=== PATIENT | male | born 1985 | race Caucasian/White ===

== ENCOUNTER 2017-06-15 03:24 | Emergency (ER) | payer SELFPAY ==
[2017-06-15 03:33] VITALS: TEMP 97.8
--- NOTE | 2017-06-15 03:59 | ED PDOC ---
HPI: Chest Pain History Per: Patient History/Exam Limitations: no limitations Onset/Duration Of Symptoms: Hrs Current Symptoms Are (Timing): Gone Now Severity: Moderate Pain Scale Rating Of: 6 Quality: Squeezing Modifying Factors: None Exacerbating Factors: None Alleviating Factors: None Additional History Per: Patient <CarmenMelia - Last Filed: 06/15/17 06:38> <Jordan Baumann - Last Filed: 06/15/17 06:55> Time Seen by Provider: 06/15/17 03:27 Chief Complaint (Nursing): Chest Pain Additional Complaint(s): 32 YO Male with PMH of anxiety, presents to [facility] ED for chest pain x 11 hrs. Pt states that he was sitting on his computer when his pain started, he describes it as a squeezing pain that radiation to his L scapula. No radiation to his L shoulder/arm or jaw. Pain not worse with ambulation, movement. Pain resolved approximately 30mins before presentation to ED. Denies dyspnea, cough, fever, palpations, n/v/d/c. Of note, pt states that he heard bad news (about his investments) right before his chest pain started. PMH: anxiety SurgH: denies SH: smokes hookah (1-2x a week), no illicit drug use and social alcohol (3-4x month) FH: denies hx of CAD, [place], Stroke, DM, HTN in family Meds: denies Allergies: NKDA (Melia Moarles) Supervising Attending Note - Attestation: I have personally seen and examined this patient.: Yes I have fully participated in the care of the patient.: Yes I have reviewed all pertinent clinical information: Yes <Jordan Baumann - Last Filed: 06/15/17 06:55> Past Medical History - Medical History PMH: No Chronic Diseases - Surgical History Surgical History: No Surg Hx - Family History Family History: States: No Known Family Hx - Living Arrangements Living Arrangements: Alone - Social History Current smoker - smoking cessation education provided: Yes (hookah 1-2x a week ) Alcohol: Social Drugs: Denies <Melia Morales - Last Filed: 06/15/17 06:38> <Jordan Baumann - Last Filed: 06/15/17 06:55> Vital Signs: Last Vital Signs Temp 97.8 F 06/15/17 03:32 Pulse 80 06/15/17 05:27 Resp 14 06/15/17 05:27 BP 129/65 06/15/17 05:27 Pulse Ox 100 06/15/17 06:39 - Allergies Allergies/Adverse Reactions: Allergies Allergy/AdvReac Type Severity Reaction Status Date / Time No Known Allergies Allergy Verified 06/15/17 03:32 Review of Systems Constitutional: Negative for: Fever, Chills Cardiovascular: Positive for: Chest Pain. Negative for: Palpitations, Light Headedness Respiratory: Negative for: Cough, Shortness of Breath, SOB with Exertion Gastrointestinal: Negative for: Nausea, Vomiting, Abdominal Pain Neurological: Negative for: Weakness, Confusion Psych: Positive for: Anxiety <Melia Morales - Last Filed: 06/15/17 06:38> Physical Exam - Physical Exam Appears: Positive for: Well, Non-toxic, No Acute Distress Head Exam: Positive for: ATRAUMATIC, NORMOCEPHALIC Skin: Positive for: Normal Color Eye Exam: Positive for: Normal appearance, EOMI Neck: Positive for: Painless ROM Cardiovascular/Chest: Positive for: Regular Rate, Rhythm, Other (Mild T2-T4 L parasternal tenderness to palpation ) Respiratory: Positive for: Normal Breath Sounds. Negative for: Crackles, Wheezing, Respiratory Distress Gastrointestinal/Abdominal: Positive for: Normal Exam, Bowel Sounds, Soft. Negative for: Tenderness Back: Positive for: Normal Inspection Extremity: Positive for: Normal ROM Neurologic/Psych: Positive for: Alert, Oriented <Melia Morales - Last Filed: 06/15/17 06:38> - Laboratory Results Result Diagrams: 06/15/17 04:10 06/15/17 04:10 - ECG ECG: Positive for: Interpreted By Ma ECG Rhythm: Positive for: Sinus Rhythm O2 Sat by Pulse Oximetry: 100 <Melia Morales - Last Filed: 06/15/17 06:38> - Laboratory Results Result Diagrams: 06/15/17 04:10 06/15/17 04:10 <Jordan Baumann - Last Filed: 06/15/17 06:55> - ECG Interpretation Of ECG: Normal sinus rhythm with rate of 76. No acute ST changes. (Melia Morales) - Progress ED Course And Treament: 32 YO male is seen in ED for chest pain, likely 2/2 to anxiety. EKG with normal sinus, no acute ST changes, with rate of 76 --CBC --CMP --Trops Blood work seen and reviewed with pt. CBC wnl, CMP wnl. Trops neg <0.012. Pt feeling better, no longer has any chest pain. Will d/c home with follow up in [facility]. (Melia Morales) Disposition - Disposition Disposition Time: 05:30 <Melia Morales - Last Filed: 06/15/17 06:38> <Jordan Baumann - Last Filed: 06/15/17 06:55> - Clinical Impression Clinical Impression: Non-cardiac chest pain - Disposition Referrals: [facility] [Outside] Condition: STABLE Instructions: Chest Pain That Is Not Caused by the Heart (DC) Forms: [employer] (Armenian)
[2017-06-15 04:19] LABS: BASO # 0.1 K/uL (0.0-0.2); BASO % 1.4 % (0.0-2.0); EOS # 0.4 K/uL (0.0-0.7); EOS % 4.5 % (0.0-4.0); HEMOGLOBIN 15.1 g/dL (12.0-18.0); LYMPH # 3.1 K/uL (1.0-4.3); LYMPH % 38.7 % (20.0-40.0); MEAN CELL VOLUME 88.9 fl (80.0-94.0); MEAN CORPUSCULAR HEMOGLOBIN 30.5 pg (27.0-31.0); MEAN CORPUSCULAR HGB CONC 34.3 g/dL (33.0-37.0); MEAN PLATELET VOLUME 8.5 fl (7.2-11.7); MONO # 0.6 K/uL (0.0-0.8); MONO % 7.1 % (0.0-10.0); NEUT # 3.8 K/uL (1.8-7.0); NEUT % 48.3 % (50.0-75.0); NRBC % 0.1 % (0.0-0.0); RBC 4.96 Mil/uL (4.40-5.90)
[2017-06-15 04:29] LABS: ALB/GLOB RATIO 1.4 (1.0-2.1); ALBUMIN 4.3 g/dL (3.5-5.0); ALT/SGPT 35 U/L (21-72); AST/SGOT 37 U/L (17-59); BLOOD UREA NITROGEN 15 mg/dl (9-20); CALCIUM 9.9 mg/dL (8.4-10.2); GFR AFRICAN-AMERICAN > 60; GFR NON-AFRICAN AMERICAN > 60
[2017-06-15 05:27] VITALS: BP 129/65; PULSE 80; RESP 14
[2017-06-15 06:39] VITALS: O2SAT 100
== END 2017-06-15 05:28 | disposition home or self-care (01) ==
LOC: H.ER 03:24
DX: R07.89 Other chest pain (principal); F41.9 Anxiety disorder, unspecified; F17.200 Nicotine dependence, unspecified, uncomplicated

== ENCOUNTER 2017-07-29 20:40 | Emergency (ER) | payer SELFPAY ==
[2017-07-29 20:52] VITALS: BP 134/80; PULSE 68; RESP 18; TEMP 98.1; O2SAT 99
[2017-07-29 21:29] LABS: URINE BILIRUBIN NEGATIVE (NEGATIVE); URINE BLOOD SMALL (NEGATIVE); URINE CLARITY CLEAR (Clear); URINE COLOR YELLOW (YELLOW); URINE GLUCOSE (UA) NEG (Normal); URINE LEUKOCYTE ESTERASE NEG Leu/uL (Negative); URINE PROTEIN NEGATIVE (NEGATIVE); URINE UROBILINOGEN 0.2-1.0 mg/dL (0.2-1.0)
--- NOTE | 2017-07-29 22:10 | ED PDOC ---
HPI: Male Pain Time Seen by Provider: 07/29/17 20:57 Chief Complaint (Nursing): Male Genitourinary Chief Complaint (Provider): testicular pain History Per: Patient History/Exam Limitations: no limitations Onset/Duration Of Symptoms: Hrs, Sudden Onset Current Symptoms Are (Timing): Still Present Quality Of Discomfort: Dull, "Pain" Additional Complaint(s): 32yo male, presents to ED for evaluation of sudden onset testicular pain, right > left which occurred 2 hours ago. Patient states the pain initially was sharp but now has decreased to a dull ache and is tolerable. Patient states he initially went to [facility] for evaluation and had a UA done which was negative; patient was referred to the ED for further evaluation. Patient reports for the past 3 weeks, he has had intermittent burning with urination but denies any penile discharge, lesions, fever, chills, nausea, vomiting, abdominal pain, diarrhea or constipation. Patient denies any new sexual partners as well. he offers no other medical complaints. PMD: None Past Medical History Reviewed: Historical Data, Nursing Documentation, Vital Signs Vital Signs: Last Vital Signs Temp 98.1 F 07/29/17 20:49 Pulse 68 07/29/17 20:49 Resp 18 07/29/17 20:49 BP 134/80 07/29/17 20:49 Pulse Ox 99 07/29/17 20:49 - Medical History PMH: No Chronic Diseases - Surgical History Surgical History: No Surg Hx - Family History Family History: States: No Known Family Hx - Social History Current smoker - smoking cessation education provided: Yes Alcohol: Occasional Drugs: Denies - Allergies Allergies/Adverse Reactions: Allergies Allergy/AdvReac Type Severity Reaction Status Date / Time No Known Allergies Allergy Verified 06/15/17 03:32 Review of Systems ROS Statement: Except As Marked, All Systems Reviewed And Found Negative Constitutional: Negative for: Fever, Chills Gastrointestinal: Negative for: Nausea, Vomiting, Abdominal Pain Genitourinary Male: Positive for: Other (testicular pain right > left ). Negative for: Penile Discharge Physical Exam - Reviewed Nursing Documentation Reviewed: Yes Vital Signs Reviewed: Yes - Physical Exam Appears: Positive for: Non-toxic, No Acute Distress Male Genital Exam: Positive for: normal genitalia, testicular tenderness (R) ( mild), testicular tenderness (L) (mild), other (normal cremasteric reflex; normal lie). Negative for: lesions, urethral discharge Lymphatic: Negative for: Adenopathy (inguinal) - ECG O2 Sat by Pulse Oximetry: 99 (RA) Pulse Ox Interpretation: Normal Medical Decision Making Medical Decision Making: Impression: Testicular pain Differential diagnosis (including but not limited to): Torsion, epididymitis, hydrocele, varicocele Plan: -- Male genital exam done w/ mail teller Yeny as flying ii instructor -- Labs -- Urine culture -- US Duplex Testes Time: 2222 US Testicles FINDINGS: Right testicle: Unremarkable. No mass. No torsion. Left testicle: Unremarkable. No mass. No torsion. Epididymides: Unremarkable. Scrotum: A small left varicocele is noted. There is a small left hydrocele. IMPRESSION: 1. A small left varicocele is noted. 2. There is a small left hydrocele. RBC 4 in UA No clinically significant findings DW pt findings and plan of care. f/u urology. stable for dc. Concerns/questions addressed/answered. Scribe Attestation: Documented by Emilia Mcdaniels acting as a scribe for Yolanda Serra MD. Provider Attestation: All medical record entries made by the Scribe were at my direction and personally dictated by me. I have reviewed the chart and agree that the record accurately reflects my personal performance of the history, physical exam, medical decision making, and the department course for this patient. I have also personally directed, reviewed, and agree with the discharge instructions and disposition. Disposition - Clinical Impression Clinical Impression: Varicocele Counseled Patient/Family Regarding: Studies Performed, Diagnosis, Need For Followup - Disposition Referrals: Jesus Patton MD [Staff Provider] - (CALL TOMORROW TO SCHEDULE APPOINTMENT IN 1-2 WEEKS FOR REEVALUATION) Disposition: Routine/Home Disposition Time: :39 Condition: GOOD Instructions: Varicocele
--- NOTE | 2017-07-30 09:43 | US ---
HISTORY: Testicular pain. TECHNIQUE: Realtime sonography through the scrotum with color and doppler flow. COMPARISON: None Available. FINDINGS: RIGHT TESTICLE: Measures 2.3 x 3.5 x 4.3 cm. Normal echotexture and flow. RIGHT EPIDIDYMIS: Epididymal head measures 0.6 x 0.8 x 0.8 cm. Grossly unremarkable appearance with normal flow. LEFT TESTICLE: Measures 2.2 x 3.3 x 4.5 cm. Normal echotexture and flow. LEFT EPIDIDYMIS: Epididymal head measures 0.6 x 0.6 x 1.1 cm. Grossly unremarkable appearance with normal flow. HYDROCELE: Small, unilateral perhaps physiologic-left VARICOCELE: Small, unilateral-left. OTHER FINDINGS: None. IMPRESSION: Negative study for epididymitis, orchitis, torsion or mass. Additional benign and/or incidental findings described above. Concordant results (preliminary interpretation) provided by [facility]. Procedure Completed: 21:48 Preliminary ([facility]) Report: Dictated and Authenticated: 22:05 Final Interpretation: 09:41 July 30, 2017.
== END 2017-07-29 22:54 | disposition home or self-care (01) ==
LOC: H.ER 20:40
DX: I86.1 Scrotal varices (principal)